=== PATIENT | male | born 1945 | race American Indian/Alaskan Native ===

== ENCOUNTER 2022-05-30 07:34 | Emergency (ER) | payer SELFPAY ==
--- NOTE | 2022-05-30 09:32 | Emergency Department Report ---
ED Palpitations HPI - General Chief Complaint: Arrhythmia/Palpitations Stated Complaint: BRADYCARDIA Time Seen by Provider: 05/30/22 07:56 Source: patient, EMS Mode of arrival: Stretcher Limitations: No Limitations - History of Present Illness Initial Comments: 76 yo M with history of ESRD currently on dialysis who was sent to the ED for bradycardia noted on the monitor while his was been dialyzed. Pt denies any unusual sob or palpitation or chest pain. No other modifying or associated factors. - Related Data Allergies Allergy/AdvReac Type Severity Reaction Status Date / Time No Known Allergies Allergy Verified 05/30/22 07:37 ED Review of Systems ROS: Stated complaint: BRADYCARDIA Other details as noted in HPI Comment: All other systems reviewed and negative Cardiovascular: palpitations, other (bradycardia) ED Past Medical Hx - Past Medical History Hx Diabetes: Yes Additional medical history: dialysis - Social History Smoking Status: Never Smoker ED Physical Exam - General Limitations: No Limitations General appearance: alert, in no apparent distress - Head Head exam: Present: normal inspection - Eye Eye exam: Present: normal appearance Pupils: Present: normal accommodation - ENT ENT exam: Present: normal exam, normal orophraynx, mucous membranes dry - Neck Neck exam: Present: normal inspection, full ROM. Absent: tenderness - Respiratory Respiratory exam: Present: normal lung sounds bilaterally. Absent: respiratory distress, accessory muscle use - Cardiovascular Cardiovascular Exam: Present: bradycardia - GI/Abdominal GI/Abdominal exam: Present: soft, normal bowel sounds. Absent: distended, tenderness - Extremities Exam Extremities exam: Present: normal inspection, normal capillary refill. Absent: full ROM, tenderness, pedal edema - Back Exam Back exam: Absent: tenderness - Neurological Exam Neurological exam: Present: alert, oriented X3 - Psychiatric Psychiatric exam: Present: normal affect, normal mood - Skin Skin exam: Present: warm, normal color ED Course Vital Signs 05/30/22 05/30/22 05/30/22 07:35 07:46 08:00 Pulse Rate 52 L 47 L 53 L Respiratory 14 15 18 Rate Blood Pressure 113/69 Blood Pressure 124/72 [Left] O2 Sat by Pulse 94 92 87 Oximetry 05/30/22 05/30/22 08:16 08:30 Pulse Rate 68 Respiratory 21 Rate Blood Pressure 113/69 Blood Pressure [Left] O2 Sat by Pulse 99 99 Oximetry ED Medical Decision Making - Lab Data Result diagrams: 05/30/22 09:57 05/30/22 09:57 - EKG Data -: EKG Interpreted by Me EKG shows normal: sinus rhythm Rate: bradycardia - EKG Data Interpretation: no acute changes, nonspecific ST-T wave chang - Medical Decision Making here with bradycardia during dialysis -- unsure the cause but could be as a result of dehydration --to find out will go ahead and order CBC, CMP and UA for any electrolyte abnormality or infectious process as a cause--will also check thyroid panel-- Noted with unremarkable labs including renal functions--pt reassured and d/c home to close follow up with his PCP-- Critical care attestation.: If time is entered above; I have spent that time in minutes in the direct care of this critically ill patient, excluding procedure time. ED Disposition Clinical Impression: Bradycardia Disposition: 01 HOME / SELF CARE / HOMELESS Is pt being admited?: No Does the pt Need Aspirin: No Condition: Stable Instructions: Bradycardia, Adult Additional Instructions: Keep your dialysis appointment as instructed and prescribed by your bill recapitulation clerk Increase your daily fluid to help your hydration Please do not hesitate to call or return to emergency room if your symptoms worsen Referrals: JIGNESH GUEVARA MD [Referring] - 3-5 Days Time of Disposition: 13:44
[2022-05-30] MEDS ORDERED: HEPARIN 10,000 UNITS/10 ML VIAL IV PRN (09:51)
[2022-05-30 10:48] LABS: Basophils # (Auto) 0.1 K/mm3 (0.0-0.1); Eosinophils # (Auto) 0.2 K/mm3 (0.0-0.4); Eosinophils % (Auto) 2.8 % (0.0-4.3); Hematocrit 37.9 % (35.5-45.6); Hemoglobin 11.7 gm/dl (11.8-15.2); Lymphocytes # (Auto) 0.9 K/mm3 (1.2-5.4); Lymphocytes % (Auto) 16.6 % (13.4-35.0); Mean Corpuscular HGB Conc 31 % (32-34); Mean Corpuscular Volume 82 fl (84-94); Mean Platelet Volume 8.3 fl (6-12); Monocytes # (Auto) 0.5 K/mm3 (0.0-0.8); Monocytes % (Auto) 8.2 % (0.0-7.3); Platelet Count 343 K/mm3 (140-440); Red Blood Count 4.62 M/mm3 (3.65-5.03); Red Cell Distribution Width 18.4 % (13.2-15.2)
[2022-05-30 12:38] LABS: Albumin 4.1 g/dL (3.9-5); Calcium 11.1 mg/dL (8.4-10.2)
[2022-05-30 12:48] LABS: Free T4 (Free Thyroxine) 0.79 ng/dL (0.76-1.46)
--- NOTE | 2022-05-30 13:21 | Electrocardiograph Report ---
[facility] Test Date: 2022-05-30 Test Time: 07:41:18 Pat Name: GUERLINE YOO Department: Room: Gender: M Color Expert: TV : 1945 Requested By: RICHELLE LEWIS Order Number: [id number] Reading MD: Souleymane Bro Measurements Intervals [place] Rate: 44 P: 48 NC: 101 QRS: 15 QRSD: 108 T: 61 QT: 498 QTc: 425 Interpretive Statements Sinus bradycardia MOBITZ I AV BLOCK ([place] Anteroseptal infarct, age indeterminate No previous ECG available for comparison Electronically Signed On 05-30-2022 13:21:24 EDT by Souleymane Bro
[2022-05-30 14:43] VITALS: BP 135/60
== END 2022-05-30 14:44 | disposition home or self-care (01) ==
LOC: ED 07:34
DX: R00.1 Bradycardia, unspecified (principal); E11.9 Type 2 diabetes mellitus without complications
CPT/HCPCS: 36415; 80053; 84439; 84443; 85025; 93005; 99283; 99284

== ENCOUNTER 2022-06-25 10:26 | Emergency (ER) | payer MEDICARE ==
[2022-06-25] MEDS ORDERED: HYDROcodone/ACETAMINOPHEN 5-325 MG TAB PO ONE (11:25)
--- NOTE | 2022-06-25 12:21 | Cat Scan Report ---
CT ABDOMEN AND PELVIS WITHOUT CONTRAST HISTORY: right flank pain COMPARISON: None. TECHNIQUE: Axial CT images were obtained through the abdomen and pelvis without IV contrast. Sagittal and coronal reformatted images. All CT scans at this location are performed using CT dose reduction for ALARA by means of automated exposure control. FINDINGS: CT ABDOMEN: Lung Bases: Borderline to mild cardiomegaly. Minor subpleural atelectatic changes are noted in both l ower lobes. Liver: No significant abnormality. Biliary: No significant abnormality. Spleen: No significant abnormality. Unenlarged. Pancreas: No significant abnormality. Adrenals: No significant abnormality. Kidneys: The right kidney has been surgically removed. The left kidney is atrophic measuring 8 cm in length. An approximate 1 cm calcification is identified at the ureteropelvic junction in the left kid yelitza. There is no significant hydronephrosis. A 2 mm calyceal stone is identified at the superior pole of the left kidney. There is also a slightly complex cyst at the superior pole the left kidney conta ining thin rim calcifications. Lymphatics: No lymphadenopathy. Vasculature: Moderate atherosclerotic disease in the aorta and iliac arteries without acute abnormali ty. Bowel/Peritoneum: No significant abnormality. No free air. No free fluid. The appendix is not confide ntly identified. CT PELVIS: : The bladder is unremarkable. There is mild prostatomegaly. Osseous Structures: Grade 1 anterolisthesis of L4 with respect L5. Nothing acute. Additional Findings: None IMPRESSION: No clear explanation for right flank pain. Right nephrectomy has been performed. Atrophic left kidney containing stones as described. No hydronephrosis. Other chronic incidental findings as described. Signer Name: Eben Bernal Jr, MD Signed: 06/25/2022 12:17 PM Workstation Name: [id number]
--- NOTE | 2022-06-25 12:47 | Emergency Department Report ---
ED Abdominal Pain HPI - General Chief Complaint: Abdominal Pain Stated Complaint: PAIN/RT ABD PAIN/RIB CAGE Time Seen by Provider: 06/25/22 10:32 Source: patient, EMS Mode of arrival: Stretcher Limitations: No Limitations - History of Present Illness Initial Comments: 76-year-old male with a past medical history of diabetes, end-stage renal disease on dialysis Saturday, Saturday, Saturday. sleep apeniaand hypertension presents to the hospital with complaints of right flank pain 3 days. Patient apparently was at [facility] with similar complaints with unclear work up and discharge diagnosis. Patient denies nausea, vomiting, or fever. Pain is constant, mod erate in intensity, worse with movement and palpation. No alleviating factors reported. Patient was sent here from dialysis and did not receive dialysis today. He has not take his meds today. His quality liaison Dr. Aguilera Severity scale (0 -10): 10 - Related Data Home Medications Medication Instructions Recorded Confirmed Last Taken Apixaban [Eliquis] 5 mg PO DAILY 06/25/22 06/25/22 Unknown NIFEdipine [Nifedipine ER] 60 mg PO DAILY 06/25/22 06/25/22 Unknown Nortriptyline HCl 50 mg PO DAILY 06/25/22 06/25/22 Unknown Pantoprazole [Protonix TAB] 40 mg PO DAILY 06/25/22 06/25/22 Unknown Sevelamer Carbonate [Renvela] 800 mg PO TIDWM 06/25/22 06/25/22 Unknown Tamsulosin [Flomax] 0.4 mg PO QDAY 06/25/22 06/25/22 Unknown Previous Rx's Medication Instructions Recorded Last Taken Type HYDROcodone/APAP 5-325 [[place] 1 each PO Q6HR PRN #10 tablet 06/25/22 Unknown Rx 5/325] Allergies Allergy/AdvReac Type Severity Reaction Status Date / Time No Known Allergies Allergy Verified 06/25/22 10:38 ED Review of Systems ROS: Stated complaint: PAIN/RT ABD PAIN/RIB CAGE Other details as noted in HPI Comment: All other systems reviewed and negative ED Past Medical Hx - Past Medical History Hx Diabetes: Yes Additional medical history: dialysis - Social History Smoking Status: Never Smoker - Medications Home Medications: Home Medications Medication Instructions Recorded Confirmed Last Taken Type Apixaban [Eliquis] 5 mg PO DAILY 06/25/22 06/25/22 Unknown History HYDROcodone/APAP 5-325 [[place] 1 each PO Q6HR PRN #10 tablet 06/25/22 Unknown Rx 5/325] NIFEdipine [Nifedipine ER] 60 mg PO DAILY 06/25/22 06/25/22 Unknown History Nortriptyline HCl 50 mg PO DAILY 06/25/22 06/25/22 Unknown History Pantoprazole [Protonix TAB] 40 mg PO DAILY 06/25/22 06/25/22 Unknown History Sevelamer Carbonate [Renvela] 800 mg PO TIDWM 06/25/22 06/25/22 Unknown History Tamsulosin [Flomax] 0.4 mg PO QDAY 06/25/22 06/25/22 Unknown History ED Physical Exam - General Limitations: No Limitations - Other Other exam information: General: No acute distress Head: Atraumatic Eyes: normal appearance ENT: Moist mucous membranes Neck: Normal appearance, no midline tenderness Chest: Clear to auscultation bilaterally CV: Regular rate and rhythm Abdomen: Soft, normal bowel sounds, right middle flank pain/lateral abdominal pain to palpation. Also worsens with movement Back: Normal inspection Extremity: Normal inspection, full range of motion Neuro: Alert chronic right sided weakness compared to left as per patient Psych: Appropriate behavior Skin: No rash ED Course Vital Signs 06/25/22 06/25/22 06/25/22 10:27 11:29 11:31 Temperature 98.1 F Pulse Rate 64 Respiratory 18 Rate Blood Pressure 197/89 Blood Pressure 180/86 [Left] O2 Sat by Pulse 95 95 94 Oximetry 06/25/22 06/25/22 06/25/22 11:46 12:00 12:36 Temperature Pulse Rate Respiratory Rate Blood Pressure 197/89 197/89 Blood Pressure [Left] O2 Sat by Pulse 85 85 97 Oximetry 06/25/22 06/25/22 06/25/22 12:45 13:01 13:15 Temperature Pulse Rate Respiratory Rate Blood Pressure 203/70 203/70 199/69 Blood Pressure [Left] O2 Sat by Pulse 95 96 98 Oximetry 06/25/22 06/25/22 06/25/22 13:31 13:45 14:01 Temperature Pulse Rate Respiratory Rate Blood Pressure 199/69 200/77 205/81 Blood Pressure [Left] O2 Sat by Pulse 92 87 92 Oximetry 06/25/22 06/25/22 06/25/22 14:15 14:31 14:45 Temperature Pulse Rate Respiratory Rate Blood Pressure 206/82 206/82 207/76 Blood Pressure [Left] O2 Sat by Pulse 88 90 93 Oximetry 06/25/22 06/25/22 06/25/22 16:09 16:11 16:13 Temperature Pulse Rate Respiratory Rate Blood Pressure 225/89 225/89 216/84 Blood Pressure [Left] O2 Sat by Pulse 89 83 L 90 Oximetry 06/25/22 06/25/22 06/25/22 16:15 16:17 16:19 Temperature Pulse Rate Respiratory Rate Blood Pressure 216/84 228/82 225/106 Blood Pressure [Left] O2 Sat by Pulse 93 89 89 Oximetry 06/25/22 06/25/22 06/25/22 16:21 16:23 16:25 Temperature Pulse Rate Respiratory Rate Blood Pressure 225/106 225/101 225/101 Blood Pressure [Left] O2 Sat by Pulse 86 83 L 90 Oximetry 06/25/22 06/25/22 06/25/22 16:27 16:29 16:31 Temperature Pulse Rate Respiratory Rate Blood Pressure 225/101 225/101 225/101 Blood Pressure [Left] O2 Sat by Pulse 83 L 89 94 Oximetry 06/25/22 06/25/22 06/25/22 16:33 16:35 16:37 Temperature Pulse Rate Respiratory Rate Blood Pressure 225/101 225/101 225/101 Blood Pressure [Left] O2 Sat by Pulse 84 90 98 Oximetry 06/25/22 06/25/22 06/25/22 16:39 16:41 16:43 Temperature Pulse Rate Respiratory Rate Blood Pressure 225/101 225/101 222/87 Blood Pressure [Left] O2 Sat by Pulse 98 87 98 Oximetry 06/25/22 06/25/22 06/25/22 16:45 16:47 16:49 Temperature Pulse Rate Respiratory Rate Blood Pressure 222/87 222/87 222/87 Blood Pressure [Left] O2 Sat by Pulse 98 83 L 87 Oximetry 06/25/22 06/25/22 06/25/22 16:51 16:53 16:55 Temperature Pulse Rate Respiratory Rate Blood Pressure 222/87 222/87 222/87 Blood Pressure [Left] O2 Sat by Pulse 94 96 92 Oximetry 06/25/22 06/25/22 06/25/22 16:57 16:59 17:01 Temperature Pulse Rate Respiratory Rate Blood Pressure 222/87 222/87 222/87 Blood Pressure [Left] O2 Sat by Pulse 84 88 86 Oximetry 06/25/22 06/25/22 06/25/22 17:03 17:04 17:07 Temperature Pulse Rate Respiratory Rate Blood Pressure 193/81 193/81 193/81 Blood Pressure [Left] O2 Sat by Pulse 88 95 81 L Oximetry 06/25/22 06/25/22 06/25/22 17:09 17:11 17:13 Temperature Pulse Rate Respiratory Rate Blood Pressure 193/81 193/81 193/81 Blood Pressure [Left] O2 Sat by Pulse 94 94 83 L Oximetry 06/25/22 06/25/22 06/25/22 17:15 17:17 17:19 Temperature Pulse Rate Respiratory Rate Blood Pressure 193/81 193/81 193/81 Blood Pressure [Left] O2 Sat by Pulse 87 97 95 Oximetry 06/25/22 06/25/22 06/25/22 17:21 17:23 17:24 Temperature Pulse Rate Respiratory Rate Blood Pressure 193/81 212/102 212/102 Blood Pressure [Left] O2 Sat by Pulse 85 91 87 Oximetry 06/25/22 06/25/22 06/25/22 17:27 17:29 17:31 Temperature Pulse Rate Respiratory Rate Blood Pressure 212/102 212/102 212/102 Blood Pressure [Left] O2 Sat by Pulse 94 87 90 Oximetry 06/25/22 06/25/22 06/25/22 17:33 17:35 17:37 Temperature Pulse Rate Respiratory Rate Blood Pressure 212/102 212/102 212/102 Blood Pressure [Left] O2 Sat by Pulse 92 78 L 88 Oximetry 06/25/22 06/25/22 06/25/22 17:39 17:41 17:43 Temperature Pulse Rate Respiratory Rate Blood Pressure 212/102 212/102 204/101 Blood Pressure [Left] O2 Sat by Pulse 97 89 80 L Oximetry 06/25/22 06/25/22 17:45 17:46 Temperature Pulse Rate Respiratory Rate Blood Pressure 204/101 203/85 Blood Pressure [Left] O2 Sat by Pulse 88 93 Oximetry - Consultations Consultation #1: 06/25/22 case d/w DR Kelly, pt does not need emergent dialysis at this time ED Medical Decision Making - Lab Data Result diagrams: 06/25/22 12:01 06/25/22 12:01 Lab Results 06/25/22 06/25/22 Range/Units 12: 12:01 WBC 4.6 (4.5-11.0) K/mm3 RBC 4.97 (3.65-5.03) M/mm3 Hgb 12.3 (11.8-15.2) gm/dl Hct 41.6 (35.5-45.6) % MCV 84 (84-94) fl MCH 25 L (28-32) pg MCHC 30 L (32-34) % RDW 18.7 H (13.2-15.2) % Plt Count 160 (140-440) K/mm3 Lymph % (Auto) 19.3 (13.4-35.0) % Sanders % (Auto) 7.4 H (0.0-7.3) % Eos % (Auto) 3.6 (0.0-4.3) % Baso % (Auto) 0.6 (0.0-1.8) % Lymph # (Auto) 0.9 L (1.2-5.4) K/mm3 Sanders # (Auto) 0.3 (0.0-0.8) K/mm3 Eos # (Auto) 0.2 (0.0-0.4) K/mm3 Baso # (Auto) 0.0 (0.0-0.1) K/mm3 Seg Neutrophils % 69.1 (40.0-70.0) % Seg Neutrophils # 3.2 (1.8-7.7) K/mm3 Sodium 141 (137-145) mmol/L Potassium 4.6 (3.6-5.0) mmol/L Chloride 99.1 (98-107) mmol/L Carbon Dioxide 28 (22-30) mmol/L Anion Gap 19 mmol/L BUN 46 H (9-20) mg/dL Creatinine 12.1 H (0.8-1.3) mg/dL Estimated GFR 5 ml/min BUN/Creatinine Ratio 4 % Glucose 124 H (75-100) mg/dL Calcium 10.8 H (8.4-10.2) mg/dL Total Bilirubin 0.40 (0.1-1.2) mg/dL AST 11 (5-40) units/L ALT 12 (7-56) units/L Alkaline Phosphatase 69 (35-129) units/L Total Protein 6.2 L (6.3-8.2) g/dL Albumin 4.2 (3.9-5) g/dL Albumin/Globulin Ratio 2.1 % Lipase 27 (13-60) units/L - Radiology Data Radiology results: report reviewed CT ABDOMEN AND PELVIS WITHOUT CONTRAST HISTORY: right flank pain COMPARISON: None. TECHNIQUE: Axial CT images were obtained through the abdomen and pelvis without IV contrast. Sagittal and coronal reformatted images. All CT scans at this location are perfo rmed using CT dose reduction for ALARA by means of automated exposure control. FINDINGS: CT ABDOMEN: Lung Bases: Borderline to mild cardiomegaly. Minor subpleural atelectatic changes are noted in both lower lobes. Liver: No significant abnormality. Biliary: No significant abnormality. Spleen: No significant abnormality. Unenlarged. Pancreas: No significant abnormality. Adrenals: No significant abnormality. Kidneys: The right kidney has been surgically removed. The left kidney is atrophic measuring 8 cm in length. An approximate 1 cm calcification is identified at the ureteropelvic junction in the left kidney. There is no significant hydronephrosis. A 2 mm calyceal stone is identified at the superior pole of the left kidney. There is also a slightly complex cyst at the superior pole the left kidney containing thin rim calcifications. Lymphatics: No lymphadenopathy. Vasculature: Moderate atherosclerotic disease in the aorta and iliac arteries w ithout acute abnormality. Bowel/Peritoneum: No significant abnormality. No free air. No free fluid. The appendix is not confidently identified. CT PELVIS: : The bladder is unremarkable. There is mild prostatomegaly. Osseous Structures: Grade 1 anterolisthesis of L4 with respect L5. Nothing acute. Additional Findings: None IMPRESSION: No clear explanation for right flank pain. Right nephrectomy has been performed. Atrophic left kidney containing stones as described. No hydronephrosis. Other chronic incidental findings as described. - Medical Decision Making 76-year-old male presents to the hospital right flank/abdominal pain (not located at the ribs). This pain is reproduced with movement and palpation. Patient had a unremarkable CAT scan with previous right nephrectomy noted. Incidental CT abdomen and pelvis findings noted. Chest x-ray read as atelectasis versus infiltrate however, lower lung johnston obtained on CT abdomen and pelvis revealed atelectasis and patient does not have a leukocytosis or fever to suggest infection. Possible musculoskeletal cause of right flank pain since there are not any significant intra-abdominal organ findings on CT. Patient did not receive his dialysis however, he does not meet criteria for emergent dialysis at this time. Case was discussed with his nephrology group. Patient had elevated hypertension during ED stay however, he did not have his BP medications and was provided a dose of hydralazine p.o. and his nifedipine prior to discharge. Pain improved with [place]. Patient will be discharged home with pain medication and outpatient follow-up. at the bedside Critical Care Time: No Critical care attestation.: If time is entered above; I have spent that time in minutes in the direct care of this critically ill patient, excluding procedure time. ED Disposition Clinical Impression: Right flank pain, History of right nephrectomy, ESRD (end stage renal disease) on dialysis, Chronic hypertension Disposition: 01 HOME / SELF CARE / HOMELESS Is pt being admited?: No Does the pt Need Aspirin: No Condition: Stable Instructions: Hypertension (ED), Abdominal Pain, Adult Additional Instructions: Take the medication as prescribed. Follow-up with your doctor or doctor/clinic provided. Return if symptoms worsen as indicated by your discharge instructions. Prescriptions: HYDROcodone/APAP 5-325 [[place] 5/325] 1 each PO Q6HR PRN #10 tablet PRN Reason: Pain Referrals: PRIMARY CARE, [Primary Care Provider] - 3-5 Days Time of Disposition: 17:59
[2022-06-25 12:58] LABS: Basophils % (Auto) 0.6 % (0.0-1.8); Eosinophils # (Auto) 0.2 K/mm3 (0.0-0.4); Eosinophils % (Auto) 3.6 % (0.0-4.3); Hematocrit 41.6 % (35.5-45.6); Hemoglobin 12.3 gm/dl (11.8-15.2); Lymphocytes # (Auto) 0.9 K/mm3 (1.2-5.4); Lymphocytes % (Auto) 19.3 % (13.4-35.0); Mean Corpuscular HGB Conc 30 % (32-34); Mean Corpuscular Volume 84 fl (84-94); Monocytes # (Auto) 0.3 K/mm3 (0.0-0.8); Monocytes % (Auto) 7.4 % (0.0-7.3); Platelet Count 160 K/mm3 (140-440); Red Blood Count 4.97 M/mm3 (3.65-5.03); Red Cell Distribution Width 18.7 % (13.2-15.2)
[2022-06-25 13:11] LABS: Albumin 4.2 g/dL (3.9-5); Calcium 10.8 mg/dL (8.4-10.2)
[2022-06-25] MEDS ORDERED: hydrALAZINE 25 MG TAB PO ONE ×2 (14:03→16:33)
--- NOTE | 2022-06-25 15:39 | XRay Report ---
CHEST 1 VIEW 06/25/2022 2:31 PM INDICATION / CLINICAL INFORMATION: MISSED DIALYSIS, RIGHT FLANK PAIN. COMPARISON: None available. FINDINGS: SUPPORT DEVICES: None. HEART / MEDIASTINUM: Moderate cardiomegaly. The aorta is tortuous and ectatic. LUNGS / PLEURA: Mild basilar opacity left greater than right. No pneumothorax. ADDITIONAL FINDINGS: No significant additional findings. IMPRESSION: Mild basilar opacity left greater than right. Atelectasis versus developing pneumonia. Signer Name: Charlie Rodriguez MD Signed: 06/25/2022 3:35 PM Workstation Name: [id number]
[2022-06-25 17:49] VITALS: BP 203/85
== END 2022-06-25 18:30 | disposition home or self-care (01) ==
LOC: ED 10:26
DX: I12.0 Hypertensive chronic kidney disease with stage 5 chronic kidney disease or end stage renal disease (principal); E11.22 Type 2 diabetes mellitus with diabetic chronic kidney disease; N18.6 End stage renal disease; G89.29 Other chronic pain; Z99.2 Dependence on renal dialysis; Z79.01 Long term (current) use of anticoagulants; Z79.899 Other long term (current) drug therapy
CPT/HCPCS: 36415; 71045; 74176; 80053; 83690; 85025; 99284